=== PATIENT | male | born 1950 | race Caucasian/White ===

== ENCOUNTER 2018-07-03 10:29 | Emergency (ER) | payer OTHER ==
[~2018-07-03] VITALS: Ht 182.9 cm; Wt 82.7 kg
[2018-07-03 10:35] VITALS: BP 113/70
[2018-07-03] MEDS ORDERED: ESCI20TA10 PO (10:46)
== END 2018-07-03 11:03 | disposition home or self-care (01) ==
LOC: ED 10:35
DX: F32.9 Major depressive disorder, single episode, unspecified (principal); Z76.0 Encounter for issue of repeat prescription; F41.9 Anxiety disorder, unspecified
CPT/HCPCS: 99283